=== PATIENT | male | born 1990 | race Caucasian/White ===

== ENCOUNTER 2016-09-17 10:06 | Outpatient (CLI) | payer OTHER ==
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
== END 2016-09-17 10:07 | disposition home or self-care (01) ==
LOC: SCSCT 10:06
PROVIDERS: ATTEND Preventive Medicine Aerospace Medicine
DX: S00.31XA Abrasion of nose, initial encounter (principal); J34.1 Cyst and mucocele of nose and nasal sinus
CPT/HCPCS: 70486